=== PATIENT | female | born 1955 | race Two or more races ===

== ENCOUNTER 2023-07-08 06:21 | Day surgery (SDC) | payer OTHER ==
[2023-07-02 08:59] LABS: HEMATOCRIT 38.4 % (36.0-45.00); MEAN CELL VOLUME 86.7 fL (80.00-100.00); MEAN CORPUSCULAR HEMOGLOBIN 29.5 pg (27.00-32.0); PLATELET COUNT 276 K/uL (150-450); RED BLOOD COUNT 4.43 M/uL (4.00-6.00); RED CELL DISTRIBUTION WIDTH 13.5 % (11.5-14.5)
[2023-07-02 09:20] LABS: ALBUMIN 3.7 gm/dL (3.4-5.0); BILIRUBIN TOTAL 0.84 mg/dL (0.3-1.2); CALCIUM 9.5 mg/dL (8.5-10.1); CREATININE SERUM 0.73 mg/dL (0.55-1.02); GFR 79.05; GLOBULINA 3.4 G/DL (2.4-3.5); POTASSIUM 3.83 mEq/L (3.5-5.1); TOTAL PROTEIN 7.1 gm/dL (6.4-8.2)
[2023-07-02 09:45] LABS: INR 0.99; PARTIAL THROMBOPLASTIN TIME 25.7 SECONDS (22.0-34.0); PROTHROMBIN TIME 10.4 SECONDS (9.0-11.5)
[2023-07-02 10:49] LABS: URINE APPEARANCE Clear; URINE BILIRRUBIN Negative (NEGATIVE); URINE BLOOD Negative; URINE COLOR Yellow; URINE GLUCOSE Negative (NEGATIVE); URINE LEUKOCYTE Negative; URINE NITRATE Negative; URINE PROTEIN Negative (NEGATIVE); URINE UROBILINOGEN 0.2 E.U./dl
[2023-07-02 10:55] LABS: URINE RBC 2.8 uL (0.0-20.8)
[2023-07-02 10:57] LABS: URINE EPITHELIAL CELLS 0.6 uL (0.0-38.8); URINE WBC 1.3 uL (0.0-23.2)
[~2023-07-08] VITALS: Ht 157.5 cm; Wt 72.6 kg
[~2023-07-08 06:21] MED LIST: BREO ELLIPTA 51 EACH IH; CHILDREN'S ASPI81 MG PO; COZAAR100 MG PO; FLOVENT HFA10.6 GM IH; HYDROCHLOROTHIA25 MG PO; LIPITOR20 MG PO; SINGULAIR10 MG PO; TOPROL XL25 M1 PO
== END 2023-07-08 12:30 | disposition home or self-care (01) ==
LOC: CIR.AMB 06:21
PROVIDERS: ATTEND Surgery
DX: K36 Other appendicitis (principal); Z88.8 Allergy status to other drugs, medicaments and biological substances; Z20.822 Contact with and (suspected) exposure to COVID-19; E11.9 Type 2 diabetes mellitus without complications; E78.5 Hyperlipidemia, unspecified; I10 Essential (primary) hypertension